=== PATIENT | female | born 1940 ===

== ENCOUNTER 2024-11-25 13:00 | Outpatient (RCR) | payer MEDICARE, BC, SELFPAY ==
--- NOTE | 2024-08-31 15:32 | OPREHPOC ---
Outpatient Therapy Plan of Care This is a Multidisciplinary Plan of Care that may contain components documented by all disciplines (PT, OT, and ST.) PT Problem 1 PT Problem #1 Knowledge Deficit PT Goal 1 Goal / Goal Update *independent with HEP Target Visit 10 PT Problem 2 PT Problem #2 Impaired Strength PT Goal 1 Goal / Goal Update increase strength of LE's to improve mobility and transfer skills gross strength of R and L LE 4/5 Target Visit 10 PT Problem 3 PT Problem #3 Impaired Functional Mobility PT Goal 1 Goal / Goal Update 1* sit/stand transfer with use of 1 UE 2* Tinetti balance/gait score of 24/28, for safety with mobility 3* pt ambulate with cane 300', independently Target Visit 10 PT Problem 4 PT Problem #4 Impaired Vestibular System PT Goal 1 Goal / Goal Update pt perform without any dizziness reported: 1* roll in bed R/L 2* supine/sit transfer 3* reading a book for 20 minutes Target Visit 8
--- NOTE | 2024-08-31 15:32 | PTOPEVAL1 ---
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 Onset about 1 year Subjective Information just started having dizziness; no problems with dizziness in the past; less reading and walking due to it, stay still so do not make it worse symptoms: room spinning, always there, but gets some better/worse at times; increase: move head and look up; lie down in bed, roll in bed; decrease: hold head still; activity: use wheeled walker since have dizziness , previously did not need walker, but cane when going out of the home; now use wheel chair when leaving the house; no longer do cooking or cleaning, reading or walking as much since dizziness--, nephew and niece help; sleep in her bed, usually on her R side Reported Pain Level Pain Score 0: Self Report Assessment PT Clinical Summary Flor has the diagnosis of vestibular therapy, BPPV . Dizziness Handicap index rating of 66% limitation in activity level. Due to dizziness she has decreased walking, home tasks and no longer reading. And requires a wheeled walker for in home and wheel chair for out of home mobility. With the evaluation: vestibular testing was positive for anterior/posterior BPPV on R; Eply performed, pt education. Decreased strength and mobility with sit/stand transfer and gait skills. Tinetti gait/balance score of 14/28. Skilled PT services are indicated for vestibular therapy to decrease dizziness and progress to gait and balance retraining and mobility skills, with education for HEP and safety. Plan of Care Interventions Gait Training,Mechanical Traction,Neuro Re- education,Patient/Caregiver Education,Therapeutic Activities,Therapeutic Exercise PT Services Indicated Yes Treatment Frequency and 1-2x/wk for 10 visits Duration These treatments will address the objective and functional deficits as defined above. The patient will be advanced safely and appropriately in order for the patient to progress towards his/her prior level of function. Additional exercises will be introduced and as well as a comprehensive home exercise program upon discharge, if needed, ?to ensure carryover of functional gains achieved in the clinic. This treatment plan has been reviewed and agreement upon by the patient.
--- NOTE | 2024-11-09 13:36 | OPREHPOC ---
Outpatient Therapy Plan of Care This is a Multidisciplinary Plan of Care that may contain components documented by all disciplines (PT, OT, and ST.) PT Problem 1 PT Problem #1 Knowledge Deficit PT Goal 1 Goal / Goal Update *independent with HEP 11-09-24 progress goal met continue to progress HEP and education to pt Target Visit 16 PT Problem 2 PT Problem #2 Impaired Strength PT Goal 1 Goal / Goal Update increase strength of LE's to improve mobility and transfer skills gross strength of R and L LE / 11-09-24 progress goal not met, 4-/ strength continue towards goal Target Visit 16 PT Problem 3 PT Problem #3 Impaired Functional Mobility PT Goal 1 Goal / Goal Update 1* sit/stand transfer with use of 1 UE 2* Tinetti balance/gait score of 24/28, for safety with mobility 3* pt ambulate with cane 300', independently 11-09-24 progress goal 1 met; #2 and #3 - pt is not interested in using the cane Target Visit 10 Progress Partially Met PT Goal 2 Goal / Goal Update to improve mobility, balance and home tasks: 11-09-24 NEW GOALS: 1* pt transfer supine to sit without laboring 2* Tinetti balance score of 22/28 3* static stand without UE support x 2 minutes 4* 2 minute walking test distance of 225' with wheeled walker Target Visit 16 PT Problem 4 PT Problem #4 Impaired Vestibular System PT Goal 1 Goal / Goal Update pt perform without any dizziness reported: 1* roll in bed R/L 2* supine/sit transfer 3* reading a book for 20 minutes 11-09-24 progress goals 1,2 met; #3- reports she has not been reading lately, not sure why Target Visit 8 Progress Partially Met PT Goal 2 Goal / Goal Update 11-09-24 progress NEW GOAL * monitor vestibular system as progress her mobility and activity level
--- NOTE | 2024-11-09 13:37 | PTOPPROG ---
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 Assessment PT Clinical Summary Flor has received a total of 10 PT sessions. Today she presents with: gross strength of R and L LE of 4-/5; Tinetti balance score of 18/28; 2 minute walking test, with wheeled walker 150'; transfer sit to stand with use of 1 UE and stand to sit without UE use and good control; labored with supine to sit transfer-- difficulty with pushing up her trunk with arms; Dizziness Handicap index rating of 64% limitation in activity level; Tinetti balance score of 18/28; static standing without support of UE is 1 minute and 20 seconds, reports wobbly, tired and need to sit down. Education for HEP and safety with mobility. During the reevaluation she did not report any dizziness or vestibular issues. She did report when she first wakes up in the morning and stands up is dizzy for a couple of seconds and it clears. Flor does have some memory issues and may not be recalling her information correctly. The goals were partially met. Continue PT treatment with emphasis on increasing her LE strength, gait and balance skills. Will continue to monitor vestibular issues during sessions and treat accordingly. Plan of Care Interventions Gait Training,Mechanical Traction,Neuro Re- education,Patient/Caregiver Education,Therapeutic Activities,Therapeutic Exercise PT Services Indicated Yes Treatment Frequency and 1x/wk for 6 visits Duration These treatments will address the objective and functional deficits as defined above. The patient will be advanced safely and appropriately in order for the patient to progress towards his/her prior level of function. Additional exercises will be introduced and as well as a comprehensive home exercise program upon discharge, if needed, ?to ensure carryover of functional gains achieved in the clinic. This treatment plan has been reviewed and agreement upon by the patient.
--- NOTE | 2024-11-09 15:11 | PCPTNOTE ---
pt was 10 minutes late for today's reevaluation appt.
== END 2024-11-29 23:59 | disposition home or self-care (01) ==
LOC: ANHPT 13:00
PROVIDERS: PCP Otolaryngology; Visit Provider Otolaryngology
DX: H81.11 Benign paroxysmal vertigo, right ear (principal)
CPT/HCPCS: 95992; 97110; 97112; 97140; 97161; 97530

== ENCOUNTER 2024-12-09 12:30 | Outpatient (RCR) | payer MEDICARE, BC, SELFPAY ==
--- NOTE | 2024-12-15 08:42 | OPREHPOC ---
Outpatient Therapy Plan of Care This is a Multidisciplinary Plan of Care that may contain components documented by all disciplines (PT, OT, and ST.) PT Problem 1 PT Problem #1 Knowledge Deficit PT Goal 1 Goal / Goal Update *independent with HEP 11-09-24 progress goal met continue to progress HEP and education to pt 12-15-24 d/c pt canceled therapy the goals were not addressed. Target Visit 16 PT Problem 2 PT Problem #2 Impaired Strength PT Goal 1 Goal / Goal Update increase strength of LE's to improve mobility and transfer skills gross strength of R and L LE 05/15 11-09-24 progress goal not met, 4- strength continue towards goal 12-15-24 d/c pt canceled therapy the goals were not addressed. Target Visit 16 PT Problem 3 PT Problem #3 Impaired Functional Mobility PT Goal 1 Goal / Goal Update 1* sit/stand transfer with use of 1 UE 2* Tinetti balance/gait score of 24/28, for safety with mobility 3* pt ambulate with cane 300', independently 11-09-24 progress goal 1 met; #2 and #3 - pt is not interested in using the cane Target Visit 10 Progress Partially Met PT Goal 2 Goal / Goal Update to improve mobility, balance and home tasks: 11-09-24 NEW GOALS: 1* pt transfer supine to sit without laboring 2* Tinetti balance score of 22/28 3* static stand without UE support x 2 minutes 12-15-24 d/c pt canceled therapy the goals were not addressed. 4* 2 minute walking test distance of 225' with wheeled walker Target Visit 16 PT Problem 4 PT Problem #4 Impaired Vestibular System PT Goal 1 Goal / Goal Update pt perform without any dizziness reported: 1* roll in bed R/L 2* supine/sit transfer 3* reading a book for 20 minutes 11-09-24 progress goals 1,2 met; #3- reports she has not been reading lately, not sure why Target Visit 8 Progress Partially Met PT Goal 2 Goal / Goal Update 11-09-24 progress NEW GOAL * monitor vestibular system 12-15-24 d/c pt canceled therapy the goals were not addressed. as progress her mobility and activity level
--- NOTE | 2024-12-15 08:42 | PTOPDC ---
Assessment and note entered by Natalia Dempsey, PT Assessment Status Discharge - Pt Not Present Diagnosis vestibular therapy ICD-10 Condition Codes (PT) Difficulty Walking R26.2,Abnormalities of gait and mobility R26.9,Weakness R53.1,Dizziness and Giddiness R42 Onset about 1 year Subjective Information at the last PT treatment session on 12-09: pt and her report that they want today to be the last therapy session. She is doing OK getting around and has some other medical issues that she has to have appointments for. Assessment PT Clinical Summary Flor has received 14 PT sessions. At the last treatment session, she wanted to stop coming for therapy--see above note. The goals were not addressed, but she was using the wheeled walker for mobility and has not had any falls. Discharge PT. The goals were not addressed. Plan of Care PT Services Indicated No
== END 2024-12-15 08:54 | disposition home or self-care (01) ==
LOC: ANHPT 12:30
PROVIDERS: PCP Otolaryngology; Visit Provider Otolaryngology
DX: H81.11 Benign paroxysmal vertigo, right ear (principal)
CPT/HCPCS: 97110; 97112; 97530